=== PATIENT | male | born 1970 | race Caucasian/White ===

== ENCOUNTER 2019-02-04 20:45 | Emergency (ER) | payer OTHER ==
[~2019-02-04] VITALS: Ht 180.3 cm; Wt 95.3 kg
[2019-02-04 20:56] VITALS: BP 125/83
[2019-02-04] MEDS ORDERED: NAPROSYN500 MG PO (21:10)
[2019-02-04] MEDS ORDERED: AMOXICILLIN 50500 MG PO (21:10)
== END 2019-02-04 21:17 | disposition home or self-care (01) ==
LOC: M.ERS 20:45
DX: K02.9 Dental caries, unspecified (principal); F17.210 Nicotine dependence, cigarettes, uncomplicated; Z90.49 Acquired absence of other specified parts of digestive tract